=== PATIENT | female | born 1975 ===

== ENCOUNTER 2016-12-10 12:19 | Emergency (ER) | payer MEDICAID ==
[2016-12-10] MEDS: Dextrose 5%/Lactated Ringer's 1,000 ML IV SCH ×4 (12:30→17:42)
--- NOTE | 2016-12-10 12:55 | OBHP ---
Datetime: 12/10/2016 12:49 IP Adm Impression: , intrauterine ; No Active Labor IP Admit Plan: Observation/Evaluation; Discharge home Admit Comment, IP Provider: The patient is a 40-year-old 4 para 3 estimated due date 017 estimated gestational age 33 weeks patient presents to labor and delivery complaining of diarrhea since 5 AM this morning patient also reports occasional uterine cramping no leakage of fluid good fe becky movement. Patient states her care has been unremarkable she is getting her care at the [facility]. Patient states 2 of her children were ill with a similar condition of jazmin ea. Past medical history none Past surgical history none No known drug allergies Social history denies alcohol tobacco use Obstetrical history normal spontaneous vaginal delivery 3 Review of systems patient denies headache chest pain shortness of breath palpitations constipation dysuria or vaginal bleeding positive for diarrhea, heat or cold intolerance using bruisibility muscu loskeletal or neurological complaints Vital signs stable afebrile Physical exam see notes Intrauterine at 33 weeks diarrhea contractions IV fluid hydration, complete metabolic, CBC Zofran for nausea fibronectin done due to contractions External monitor Observation Pelvic Type - PN: Adequate Extremities - PN: Normal Abdomen - PN: Normal Back - PN: Normal Breast - PN: Not Done Lungs - PN: Normal Heart - PN: Normal Thyroid - PN: Normal Neurologic - PN: Normal HEENT - PN: Normal General - PN: Normal Presentation-Admit: Vertex FHR - Baseline A Provider: 145 Gestation - Est Wks by US: 33.0 Pool Provider: Negative Vital Signs Provider: Reviewed IP Chief Complaint: Uterine contractions; Other NICHD Variability Prov Fetus A: Moderate 6-25bpm NICHD Accel Fetus A IP Provider: 10X10 FHR Category Provider Fetus A: Category I NICHD Decel Fetus A IP Provider: None Dilatation, Provider: 0 Effacement, Provider: 0 Station, Provider: -2 Genitourinary Exam: Normal DTRs - PN: Normal
[2016-12-10 12:59] VITALS: BMI 37.2
[2016-12-10] MEDS ORDERED: Alum-Mag Hydrox-Simethicone Susp (30 mL) PO ONE (13:00)
[2016-12-10 14:20] LABS: ALKALINE PHOSPHATASE 174 U/L (38-126); ALT/SGPT 145 U/L (9-52); AMYLASE 74 U/L (30-110); AST/SGOT 301 U/L (14-36); BASO % 0.3 % (0.0-2.0); BILIRUBIN,TOTAL 0.5 mg/dl (0.2-1.3); BLOOD UREA NITROGEN 12 mg/dl (7-17); CALCIUM 9.4 mg/dL (8.4-10.2); CARBON DIOXIDE 14 mmol/L (22-30); CHLORIDE 106 mmol/L (98-107); EOS # 0.1 K/uL (0.0-0.7); EOS % 0.5 % (0.0-4.0); GFR AFRICAN-AMERICAN > 60; GLUCOSE,RANDOM 89 mg/dL (65-105); HEMATOCRIT 36.4 % (34.0-47.0); LIPASE 90 U/L (23-300); LYMPH # 0.7 K/uL (1.0-4.3); LYMPH % 5.9 % (20.0-40.0); MEAN CELL VOLUME 85.2 fl (81.0-99.0); MEAN CORPUSCULAR HEMOGLOBIN 28.3 pg (27.0-31.0); MEAN CORPUSCULAR HGB CONC 33.2 g/dL (33.0-37.0); MEAN PLATELET VOLUME 8.8 fl (7.2-11.7); MONO # 0.5 K/uL (0.0-0.8); MONO % 4.1 % (0.0-10.0); NEUT # 9.9 K/uL (1.8-7.0); NEUT % 89.2 % (50.0-75.0); NRBC % 0.1 % (0.0-0.0); PLATELET COUNT 237 K/uL (130-400); POTASSIUM 3.9 MMOL/L (3.6-5.0); RED CELL DISTRIBUTION WIDTH 13.5 % (11.5-14.5); SODIUM 138 mmol/l (132-148); TOTAL PROTEIN 8.3 G/DL (6.3-8.2); WHITE BLOOD COUNT 11.2 K/uL (4.8-10.8)
[2016-12-10 15:36] LABS: NEUTROPHIL 87 % (42-75); TOTAL CELLS COUNTED 100
[2016-12-11] MEDS ORDERED: Prenatal Multivit/Folic Acid/Iron Tab PO SCH (09:00)
== END 2016-12-10 23:00 | disposition home or self-care (01) ==
LOC: EDBD → H.EROB2 12:19
DX: O26.93 Pregnancy related conditions, unspecified, third trimester (principal); R19.7 Diarrhea, unspecified; Z3A.33 33 weeks gestation of pregnancy; R10.2 Pelvic and perineal pain; O47.03 False labor before 37 completed weeks of gestation, third trimester

== ENCOUNTER 2017-01-17 01:12 | Inpatient (IN) | payer MEDICAID ==
[2017-01-17 01:52] VITALS: BMI 37.8
[2017-01-17] MEDS ORDERED: Lactated Ringer's 1,000 ML IV SCH (02:23)
[2017-01-17 02:49] VITALS: RESP 18; O2SAT 99
[2017-01-17 03:41] LABS: BASO % 0.2 % (0.0-2.0); EOS # 0.1 K/uL (0.0-0.7); EOS % 1.2 % (0.0-4.0); HEMATOCRIT 32.6 % (34.0-47.0); LYMPH # 1.9 K/uL (1.0-4.3); LYMPH % 18.6 % (20.0-40.0); MEAN CELL VOLUME 84.5 fl (81.0-99.0); MEAN CORPUSCULAR HEMOGLOBIN 28.6 pg (27.0-31.0); MEAN CORPUSCULAR HGB CONC 33.8 g/dL (33.0-37.0); MEAN PLATELET VOLUME 9.4 fl (7.2-11.7); MONO # 0.9 K/uL (0.0-0.8); NEUT # 7.4 K/uL (1.8-7.0); NRBC % 0.1 % (0.0-0.0); RED CELL DISTRIBUTION WIDTH 14.8 % (11.5-14.5); WHITE BLOOD COUNT 10.4 K/uL (4.8-10.8)
[2017-01-17] MEDS ORDERED: Lidocaine 1% Inj (20ml) ONE (05:50)
[2017-01-17] MEDS ORDERED: Oxycodone/Acetaminophen 5/325 mg Tab PO PRN ×2 (06:17→10:42)
--- NOTE | 2017-01-17 06:27 | OBDS ---
MATERNAL INFORMATION Provider Comments: Delivered live baby girl at 6 AM the baby was bulb suctioned on the perineum and transferred to maternal chest the cord was clamped and cut 3 vessels noted cord blood was obtained an d sent to the lab. The placenta was delivered at 6:07 AM intact the estimated blood loss was 200 mL. There were no vaginal lacerations. The mother tolerated the procedure well the baby went to the nurse ry with Apgars of 9 and 9 weighing 3430 g LABOR SUMMARY EDC: 01/28/2017 00:00 LABOR INFORMATION Onset of Labor: 01/16/2017 19:00 Group B Beta Strep: Negative MEMBRANES Membranes Rupture Method: Spontaneous Rupture of Membranes: 01/16/2017 19:00 Amniotic Fluid Color: Clear VAGINAL DELIVERY Episiotomy: None Laceration Extension: N/A Laceration Type: None Laceration Repair: Not Applicable Sponge Count Correct: Yes Sharps Count Correct: N/A IDENTIFICATION/MEDS BABY A ID Band Number: [id number]
[2017-01-17 07:49] VITALS: BP 132/65; PULSE 76; TEMP 98.6
[2017-01-18 06:50] LABS: BASO # 0.1 K/uL (0.0-0.2); BASO % 0.6 % (0.0-2.0); EOS # 0.2 K/uL (0.0-0.7); EOS % 1.7 % (0.0-4.0); HEMATOCRIT 28.9 % (34.0-47.0); LYMPH # 2.3 K/uL (1.0-4.3); LYMPH % 21.7 % (20.0-40.0); MEAN CELL VOLUME 86.3 fl (81.0-99.0); MEAN CORPUSCULAR HEMOGLOBIN 28.4 pg (27.0-31.0); MEAN CORPUSCULAR HGB CONC 32.9 g/dL (33.0-37.0); MEAN PLATELET VOLUME 8.7 fl (7.2-11.7); MONO # 0.8 K/uL (0.0-0.8); MONO % 7.2 % (0.0-10.0); NEUT # 7.4 K/uL (1.8-7.0); NEUT % 68.8 % (50.0-75.0); RED CELL DISTRIBUTION WIDTH 14.6 % (11.5-14.5); WHITE BLOOD COUNT 10.8 K/uL (4.8-10.8)
--- NOTE | 2017-01-18 10:49 | OBPPN ---
Datetime: 01/18/2017 10:28 PP Pain Prov: Within normal limits PP Nausea Prov: Denies PP Flatus Prov: Yes PP BM Prov: No PP Heart Prov: Normal PP Lungs Prov: Normal PP Abdomen/Uterus Prov: Normal PP Lochia Prov: Normal PP Extremities Prov: Normal PP Progress Prov: Normal PP Comments Phys Exam Prov: lochia = menses PP Impression Prov: Normal progression PP Plan Prov: Continue present management PP Progress Note Prov: PPD1 Patient feels well. She is tolerating regular diet. Passing flatus, no BM. without difficulty. A: PPD1 s/p with normal post progression P: continue pain management encouraged ambulation. Encouraged . Kimani PGY1 The patient was seen with the resident and I agree with the notes encourage ambulation encouraged breast-feeding Motrin as needed and anticipate discharge in the a.m. Vital Signs Provider PP: Reviewed
--- NOTE | 2017-01-19 11:23 | OBPPN ---
Datetime: 01/19/2017 06:59 PP Pain Prov: Within normal limits PP Nausea Prov: Denies PP Flatus Prov: Yes PP BM Prov: No PP Breasts Prov: Normal PP Heart Prov: Normal PP Lungs Prov: Normal PP Abdomen/Uterus Prov: Normal PP Lochia Prov: Normal PP Extremities Prov: Normal PP C/S Incision Prov: Not Applicable PP Progress Prov: Normal PP Comments Phys Exam Prov: Fundus : Firm below the umbilicus Bleeding less then mensus PP Impression Prov: Normal progression PP Plan Prov: Continue present management; Discharge PP Progress Note Prov: Patient is seen on PPD2 and seems to be doing well. She is tolerating regular diet. Passing flatus, no BM. without difficulty. A: PPD2 s/p with normal post progression P: continue pain management encouraged ambulation. Encouraged . Patient is stable for discharge Lilly Valles PG-1 [facility] ADDENDUM: pt seen _ examined by me. agree w/ above assessment and pln. not given rx for motrin 600mg 2ndary to elev systolic bp IP PP Procedures: None Vital Signs Provider PP: Reviewed; Within Normal Limits
--- NOTE | 2017-01-19 11:25 | OBDCSUM ---
Datetime: 01/19/2017 07:03 Discharged to, Provider: Home Follow up at, Provider: [facility] Disch Instr Activity: Normal activity Disch Instr Diet: Regular Discharge Instructions, Provider: Routine instructions given Discharge Diagnosis, Provider: Term Delivered Discharge Time: 01/19/2017 09:00 Follow up in weeks, Provider: 6 weeks Disch Activity Restrictions: No sexual activity; Nothing in vagina - [place], tampons, douche Discharge Comment, Provider: 41 y/o @ 38.3 wks had a Delivered baby girl on 01/17/17 @ 6:00 3430g , : 9,9 Patient doing well, stable for discharge. Prescription given for pain Encourage PNV 1 tab PO once daily Ibuprofen 600 mg 1 tab PO Q6h prn for mild to moderate pain Iron supplementation Ambulate w/ caution, nothing in vagina, no heavy lifting, if excessive bleeding or fever without r elief from Ibuprofen go to ED F/U with [facility] in 6 weeks and 2-3 days for infant with dairy associate. Gildardo Valles MD Paperhanger Assistant PGY1 [facility] ADDENDUM: Modification of plan above. Pt will not be sent home on rx for motrin 600mg given elev of sytolic bp 131-141. Contraception after Delivery: Undecided
== END 2017-01-19 13:15 | disposition home or self-care (01) | DRG 373 ==
LOC: H.EROB2 01:12 → H.L&D 02:24 → H.OB/GYN 08:57
PROVIDERS: ADMIT Obstetrics & Gynecology Gynecology; ATTEND Obstetrics & Gynecology Gynecology
PROC: 10E0XZZ Delivery of Products of Conception, External Approach (ICD-10-PCS; principal; 2017-01-17)
PROC: 4A1HXCZ Monitoring of Products of Conception, Cardiac Rate, External Approach (ICD-10-PCS; 2017-01-17)
DX: O80 Encounter for full-term uncomplicated delivery (principal); Z3A.38 38 weeks gestation of pregnancy; O09.523 Supervision of elderly multigravida, third trimester; Z37.0 Single live birth

== ENCOUNTER 2017-03-04 16:48 | Emergency (ER) | payer MEDICAID ==
[2017-03-04 16:48] VITALS: BMI 37.8
[2017-03-04 17:06] VITALS: PULSE 72; RESP 16; TEMP 98.6; O2SAT 99
[2017-03-04] MEDS ORDERED: Sodium Chloride 0.9% 1,000 ML IV STA (19:24)
[2017-03-04] MEDS ORDERED: Labetalol 5 mg/ml Inj 20ML IVP ONE (19:45)
[2017-03-04 19:59] LABS: BASO # 0.1 K/uL (0.0-0.2); EOS # 0.3 K/uL (0.0-0.7); EOS % 3.5 % (0.0-4.0); LYMPH # 2.6 K/uL (1.0-4.3); MEAN CORPUSCULAR HEMOGLOBIN 27.4 pg (27.0-31.0); MEAN CORPUSCULAR HGB CONC 32.6 g/dL (33.0-37.0); MEAN PLATELET VOLUME 8.5 fl (7.2-11.7); MONO # 0.6 K/uL (0.0-0.8); MONO % 6.8 % (0.0-10.0); NEUT # 5.2 K/uL (1.8-7.0); NEUT % 58.7 % (50.0-75.0); RED CELL DISTRIBUTION WIDTH 13.7 % (11.5-14.5); WHITE BLOOD COUNT 8.8 K/uL (4.8-10.8)
[2017-03-04 20:13] LABS: RBC URINE 6 /hpf (0-3); URINE BACTERIA MANY (<OCC); URINE BILIRUBIN NEGATIVE (NEGATIVE); URINE BLOOD MODERATE (NEGATIVE); URINE COLOR YELLOW (YELLOW); URINE GLUCOSE (UA) NEG (Normal); URINE KETONE NEGATIVE (NEGATIVE); URINE LEUKOCYTE ESTERASE SMALL Leu/uL (Negative); URINE PROTEIN 100 mg/dL (NEGATIVE); URINE UROBILINOGEN 0.2-1.0 mg/dL (0.2-1.0); WBC URINE 50 /hpf (0-5)
[2017-03-04 20:16] LABS: ALB/GLOB RATIO 1.3 (1.0-2.1); ALKALINE PHOSPHATASE 110 U/L (38-126); ALT/SGPT 145 U/L (9-52); AST/SGOT 105 U/L (14-36); BILIRUBIN,TOTAL 0.4 mg/dl (0.2-1.3); BLOOD UREA NITROGEN 14 mg/dl (7-17); CALCIUM 9.5 mg/dL (8.4-10.2); CARBON DIOXIDE 28 mmol/L (22-30); CHLORIDE 105 mmol/L (98-107); GFR AFRICAN-AMERICAN > 60; GLUCOSE,RANDOM 128 mg/dL (65-105); LIPASE 141 U/L (23-300); POTASSIUM 3.6 MMOL/L (3.6-5.0); SODIUM 144 mmol/l (132-148); TOTAL PROTEIN 8.4 G/DL (6.3-8.2)
--- NOTE | 2017-03-04 20:53 | US ---
EXAM: US Duplex Right Lower Extremity Veins CLINICAL HISTORY: 41 years old, female; Pain; Leg, lower; Right; Additional info: R leg pain, post TECHNIQUE: Real-time ultrasound scan of the veins of the right lower extremity with color Doppler flow, spectral waveform analysis and compression. EXAM DATE/TIME: 03/04/2017 7:37 PM COMPARISON: No relevant prior studies available. FINDINGS: Normal-appearing compressibility, flow and augmentation response are seen in the right common femoral, femoral and popliteal veins. Flow is seen in the posterior tibial vein, in the right calf. IMPRESSION: No evidence of deep venous thrombosis in the right leg.
--- NOTE | 2017-03-04 21:05 | US ---
EXAM: US Retroperitoneal Complete, Renal CLINICAL HISTORY: 41 years old, female; Pain; Other: Rt flank pain; Additional info: R flank pain, dysuria, TECHNIQUE: Real-time ultrasound of the retroperitoneum (complete) with image documentation. EXAM DATE/TIME: 03/04/2017 7:35 PM COMPARISON: No relevant prior studies available. FINDINGS: Right kidney: Within normal limits in appearance. Measures 11.9 cm in length. No evidence of hydronephrosis. No renal calculi are visible sonographically. Left kidney: Within normal limits in appearance. Measures 12.2 cm in length. No evidence of hydronephrosis. No renal calculi are visible sonographically. Bladder: Incompletely distended, which somewhat limits evaluation. Within normal limits in appearance. Bilateral ureteral jets noted in the bladder lumen. Aorta: Imaged portions appear unremarkable. IVC: Imaged portions appear unremarkable. IMPRESSION: Unremarkable exam. No evidence of hydronephrosis or other acute sonographic abnormality of the kidneys. See above for remaining findings.
--- NOTE | 2017-03-04 21:06 | ED PDOC ---
HPI: Abdomen Time Seen by Provider: 03/04/17 19:18 Chief Complaint (Nursing): Abdominal Pain Chief Complaint (Provider): Abdominal Pain History Per: Patient Onset/Duration Of Symptoms: Days (x3 days) Current Symptoms Are (Timing): Still Present Additional Complaint(s): Corry Murphy is a 41 year old female, currently 6 weeks post-, who [facility] an evaluation of sharp abdominal pain radiating to her right flank associated with high blood pressure, dysuria, and right leg pain predominately in her thigh ongoing for 3 days. Stated she had vaginal bleeding that has now been resolved. Denies any fever, vomiting, diarrhea, swelling, headache, syncope, trauma or injury. PMD: none provided Past Medical History Reviewed: Historical Data, Nursing Documentation, Vital Signs Vital Signs: Last Vital Signs Temp 98.6 F 03/04/17 17:02 Pulse 72 03/04/17 17:02 Resp 16 03/04/17 17:02 BP 145/85 03/04/17 21:56 Pulse Ox 99 03/06/17 13:10 - Medical History PMH: Denies: Diabetes, HTN - Family History Family History: States: Unknown Family Hx - Living Arrangements Living Arrangements: With Family - Social History Current smoker - smoking cessation education provided: No - Home Medications Home Medications: Ambulatory Orders Medication Instructions Recorded Pnv with Ca,No.72/Iron/FA [Pnv 1 tab PO DAILY 12/10/16 Plus Multivit Tab] Ferrous Sulfate [Feosol] 325 mg PO BID #60 tab 01/18/17 Sennosides [Senokotxtra] 17.2 mg PO HS PRN #10 tablet 01/19/17 Cephalexin [Keflex] 500 mg PO TID #21 capsule 03/05/17 Tamsulosin [Flomax] 0.4 mg PO DAILY #5 cap 03/05/17 traMADol [Ultram] 50 mg PO TID PRN #12 tab 03/05/17 - Allergies Allergies/Adverse Reactions: Allergies Allergy/AdvReac Type Severity Reaction Status Date / Time No Known Allergies Allergy Verified 06/24/14 23:15 Review of Systems ROS Statement: Except As Marked, All Systems Reviewed And Found Negative Constitutional: Negative for: Fever, Other (trauma/injury or syncope) Gastrointestinal: Positive for: Abdominal Pain (sharp and radiating to right flank). Negative for: Vomiting, Diarrhea Genitourinary Female: Positive for: Dysuria Musculoskeletal: Positive for: Leg Pain (right leg, predominantly in thigh). Negative for: Other (swelling) Neurological: Negative for: Headache Physical Exam - Reviewed Nursing Documentation Reviewed: Yes Vital Signs Reviewed: Yes - Physical Exam Appears: Positive for: Well, Non-toxic, No Acute Distress Gastrointestinal/Abdominal: Positive for: Normal Exam, Bowel Sounds, Soft, Tenderness (Mild RLQ and suprapubic). Negative for: Mass Back: Positive for: R CVA Tenderness. Negative for: L CVA Tenderness - Laboratory Results Result Diagrams: 03/04/17 19:50 03/04/17 19:50 - ECG O2 Sat by Pulse Oximetry: 99 (RA) Pulse Ox Interpretation: Normal Medical Decision Making Medical Decision Making: Initial Impression: Post- HTN; UTI; Pyelonephritis Initial Plan: * Trandate 10mg IVP * NS 1,000 ml IV per 125 mls/hr * Urine culture * US renal * US right lower extremity duplex R/O DVT * Consult SCIENTIFIC AIDE * Reevaluate --Blood pressure is elevated when compared to prior values --Bloodwork and urine obtained showed leukocyte esterase --Mild elevation of transaminase --WBC is within normal limits Time: 20:53 US Extremities FINDINGS: Normal-appearing compressibility, flow and augmentation response are seen in the right common femoral, femoral and popliteal veins. Flow is seen in the posterior tibial vein, in the right calf. IMPRESSION: No evidence of deep venous thrombosis in the right leg. Time: 21:04 US Renal FINDINGS: Right kidney: Within normal limits in appearance. Measures 11.9 cm in length. No evidence of hydronephrosis. No renal calculi are visible sonographically. Left kidney: Within normal limits in appearance. Measures 12.2 cm in length. No evidence of hydronephrosis. No renal calculi are visible sonographically. Bladder: Incompletely distended, which somewhat limits evaluation. Within normal limits in appearance. Bilateral ureteral jets noted in the bladder lumen. Aorta: Imaged portions appear unremarkable. IVC: Imaged portions appear unremarkable. IMPRESSION: Unremarkable exam. No evidence of hydronephrosis or other acute sonographic abnormality of the kidneys. See above for remaining findings. Time: 21:27 --Rocephin 1gm IV --CT ABD/Pelvis with IV contrast ordered due to unremarkable US CT abd/pelv result reviewed and d/w Dr Petit radiologist. UA reveals evidence of infection. WBC normal and kidney function normal. Mild elev transaminases, to discuss w OB given . Case d/w Dr [place] WONG internal control specialist, BP and LFTs likely not a concern as 6+ wks post . Can be discharged to followup w PMD 2-3 days for BP check. Treat UTI/ urology eval for stone. All instructions explained in macedonian via Erika fluent loom changeover operator. Rx given and instructions for urology referral understood. [place] better on DC from ED. ~ Scribe Attestation: Documented by Bing Chacon, acting as a scribe for Dnay Arndt III, MD. Provider Scribe Attestation: All medical record entries made by the Scribe were at my direction and personally dictated by me. I have reviewed the chart and agree that the record accurately reflects my personal performance of the history, physical exam, medical decision making, and the department course for this patient. I have also personally directed, reviewed, and agree with the discharge instructions and disposition. Disposition - Clinical Impression Clinical Impression: Elevated blood pressure reading, UTI (urinary tract infection), Ureterolithiasis - Patient ED Disposition Is Patient to be Admitted: No Counseled Patient/Family Regarding: Studies Performed, Diagnosis, Need For Followup, Rx Given - Disposition [facility]] Rosa Orellana MD [Medical Doctor] - Disposition: Routine/Home Disposition Time: 01:30 Condition: STABLE Additional Instructions: See urologist in 1-2 days for further testing. You may need a procedure to remove the kidney stone and relieve pressure on your kidney. Take antibiotics as directed. Return to ER for any fever, worse pain, blood in urine, weakness or any concern. See your primary doctor for blood pressure check in 3-4 days. Return to ER for any headache, weakness, change in vision or dizziness. Avoid breast feeding while taking flomax or tramadol. Pump &dump milk. espanol: Trever al urlogo Dr Orellana en 1-2 wade para ms pruebas. Es posible que necesite un procedimiento para extirpar el clculo renal y aliviar la presin sobre russell ri n. [place] los antibiticos segn las indicaciones. Vuelva a ER para cualquier fiebre , dolor peor, chiquita en la orina, debilidad o cualquier preocupacin. Consulte a russell mdico de cabecera para chrissie la presin arterial en 3-4 wade. Regrese a ER para cualquier dolor de won, debilidad, cambio de visin o mareos. Prescriptions: Cephalexin [Keflex] 500 mg PO TID #21 capsule Tamsulosin [Flomax] 0.4 mg PO DAILY #5 cap traMADol [Ultram] 50 mg PO TID PRN #12 tab PRN Reason: Pain, Moderate (4-7) Instructions: Kidney Stones (ED), Hypertension (ED), Flank Pain (ED) Print Language: ARMENIAN
[2017-03-04 21:56] VITALS: BP 145/85
--- NOTE | 2017-03-04 23:07 | CT ---
EXAM: CT Abdomen and Pelvis With Intravenous Contrast CLINICAL HISTORY: 41 years old, female; Pain; Abdominal pain; Flank; Right; Additional info: R flank and rlq pain, 6wks . Sent phy. Doc. With request TECHNIQUE: Axial computed tomography images of the abdomen and pelvis with intravenous contrast. This CT exam was performed using one or more of the following dose reduction techniques: automated exposure control, adjustment of the mA and/or kV according to patient size, and/or use of iterative reconstruction technique. Coronal and sagittal reformatted images were created and reviewed. CONTRAST: 90 mL of [id number] administered intravenously. EXAM DATE/TIME: 03/04/2017 9:27 PM COMPARISON: Recent renal ultrasound 03/04/2017 8:05:02 PM FINDINGS: LOWER THORAX: Small bilateral pleural effusions. No infiltrate seen in the lung bases. ABDOMEN: LIVER: Fatty infiltration of the liver. GALLBLADDER AND BILE DUCTS: Tiny gallstone. No CT evidence of acute cholecystitis. PANCREAS: No CT evidence of acute pancreatitis. SPLEEN: No acute abnormality of the spleen identified. ADRENALS: No acute abnormality of the adrenal glands identified. KIDNEYS AND URETERS: Elongated 9 x 4 mm obstructing stone just distal to the right UVJ/ureterovesicular junction, image 162 series 3, in the bladder lumen posteriorly on the right, causing mild right hydroureteronephrosis. Tiny, nonobstructing left renal stone. STOMACH AND BOWEL: No acute abnormality of the stomach, small bowel or colon identified. No evidence of bowel obstruction. APPENDIX: Appendix is seen, and is within normal limits in appearance. PELVIS: BLADDER: See above. Mild thickening of the bladder wall. REPRODUCTIVE:No acute abnormality of the reproductive organs is seen. No acute abnormality of the uterus identified. No evidence of large adnexal masses. ABDOMEN and PELVIS: INTRAPERITONEAL SPACE: Small amount of free fluid in the cul-de-sac. This is most likely physiologic in nature. No evidence of free air. BONES/JOINTS: No acute fractures or other acute bony abnormality noted. SOFT TISSUES: No acute abnormality of the visualized soft tissues is seen. VASCULATURE: Multiple prominent venous vessels are seen in the pelvis, most compatible with collateral venous vessels. 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 No evidence of abdominal aortic aneurysm or dissection. LYMPH NODES: No evidence of diffuse lymphadenopathy. IMPRESSION: - 9 x 4 mm obstructing stone just distal to the right UVJ. - Small bilateral pleural effusions. - Mild bladder wall thickening. This is a nonspecific finding, but can be seen with cystitis. Recommend clinical correlation. - Otherwise, no evidence of significant acute process. 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 - Gallstones. - See above for remaining findings.
[2017-03-05] MEDS ORDERED: Sodium Chloride 0.9% 1,000 ML IV STA (00:02)
== END 2017-03-05 02:20 | disposition home or self-care (01) ==
LOC: H.ER 16:48
DX: I10 Essential (primary) hypertension (principal); N39.0 Urinary tract infection, site not specified; N12 Tubulo-interstitial nephritis, not specified as acute or chronic; K80.20 Calculus of gallbladder without cholecystitis without obstruction